=== PATIENT | male | born 1955 | race Caucasian/White ===

== ENCOUNTER 2016-07-22 00:56 | Emergency (ER) | payer OTHER, BC ==
[~2016-07-22] VITALS: Ht 187.9 cm; Wt 135.6 kg
[~2016-07-22 00:56] MED LIST: ACETAMINOPHEN-H1 TA2 PO; ASPIR-LOW81 MG PO; AUGMENTIN 875 M1 TAB PO; CITALOPRAM10 MG PO; CLARITIN10 MG PO; COREG12.5 MG PO; CYCLOBENZAPRINE10 MG PO; CYMBALTA30 MG PO; EFFIENT10 MG; GLIMEPIRIDE2 MG PO; GLUCOSAMINE & C1 CA2 PO; GLUCOSAMINE500 M1 PO; HYDROCOD-HOMAT1 EACH PO; HYDROCODONE BIT1 T11 PO; LANTUS100 U/ML SC; LASIX20 MG PO; LEVAQUIN500 M2 PO; LORATADINE10 MG PO; Levaquin PO; MELOXICAM15 MG PO; METFORMIN1000 MG PO; METFORMIN500 MG PO; MOTRIN800 MG PO; MUCINEX600 MG PO; NITRO-DUR0.4 MG/HR; OMEPRAZOLE40 MG PO; PERCOCET 325 MG1 TA7 PO; PLAVIX75 MG PO; PREDNISONE20 MG PO; ZESTRIL10 MG PO; ZOCOR40 MG PO
[2016-07-22 00:58] VITALS: BP 156/76
[2016-07-22] MEDS ORDERED: NEURONTIN300 MG PO (01:06)
[2016-07-22] MEDS ORDERED: CELECOXIB200 M1 PO (01:06)
[2016-07-22] MEDS ORDERED: BACLOFEN20 M1 PO (01:06)
[2016-07-22] MEDS ORDERED: NITROSTAT0.4 MG SL (01:07)
[2016-07-22] MEDS ORDERED: ULTRAM50 MG PO (03:33)
== END 2016-07-22 03:50 | disposition home or self-care (01) ==
LOC: ED 00:56
DX: S83.91XA Sprain of unspecified site of right knee, initial encounter (principal); M54.5 Low back pain; F41.9 Anxiety disorder, unspecified; I25.10 Atherosclerotic heart disease of native coronary artery without angina pectoris; F32.9 Major depressive disorder, single episode, unspecified; E78.5 Hyperlipidemia, unspecified; I10 Essential (primary) hypertension; M19.90 Unspecified osteoarthritis, unspecified site; E11.9 Type 2 diabetes mellitus without complications; Z79.82 Long term (current) use of aspirin; Z79.899 Other long term (current) drug therapy; W18.39XA Other fall on same level, initial encounter; Y93.9 Activity, unspecified; Y92.89 Other specified places as the place of occurrence of the external cause; Y99.9 Unspecified external cause status

== ENCOUNTER → 2016-08-01 | Outpatient (CLI) | payer BC ==
[~2016-08-01] MED LIST changes: +BACLOFEN20 M1 PO; +CELECOXIB200 M1 PO; +NEURONTIN300 MG PO; +NITROSTAT0.4 MG SL; +ULTRAM50 MG PO
== END | disposition home or self-care (01) ==
LOC: CT 14:46
DX: J32.9 Chronic sinusitis, unspecified (principal)

== ENCOUNTER 2016-12-03 11:36 | Inpatient (IN) | payer BC ==
[~2016-12-03] VITALS: Ht 187.9 cm; Wt 132.2 kg
--- NOTE | ~2016-12-03 | EKG ---
[place], [place] ELECTROCARDIOGRAM REPORT NAME: ROCKY ESPINOZA UNIT #: [id number] ROOM: 518 DOCTOR: RODOLFO JUSTIN MD BIRTHDATE: [birth year] DOS: 12/03/2016 TIME: 1207 hours. Normal sinus rhythm with unifocal PVCs. Rate is 72 beats per minute. Incomplete right bundle branch block. Abnormal ECG. No previous tracing is available for comparison. RODOLFO JUSTIN MD CM:EKGRPT:ELECTROCARDIOGRAM REPORT 2250 RODOLFO JUSTIN MD
[2016-12-03 11:40] VITALS: BP 113/59
[2016-12-03 11:48] VITALS: BP 98/50
[2016-12-03 12:00] VITALS: BP 106/56
[2016-12-03 12:19] LABS: BASO % 0.5 % (0.0-1.0); EOS # 0.1 10*3/uL (0.0-0.4); EOS % 2.5 % (1.0-4.0); HEMOGLOBIN 12.9 g/dl (14.0-18.0); LYMPH # 0.6 10*3/uL (1.3-4.4); LYMPH % 16.6 % (27.0-41.0); MEAN CELL VOLUME 91.4 fl (80.0-94.0); MEAN CORPUSCULAR HGB 31.9 pg (27.0-31.0); MEAN CORPUSCULAR HGB CONC 34.9 g/dl (33.0-37.0); MEAN PLATELET VOLUME 11.1 fl (9.6-12.3); MONO # 0.2 10*3/uL (0.1-1.0); MONO % 4.6 % (3.0-9.0); NEUT # 2.8 10*3/uL (2.3-7.9); PLATELET COUNT AUTOMATED 71 10*3/uL (130-400); RED BLOOD COUNT 4.05 10*6/uL (4.50-5.90); RED CELL DISTRI WIDTH 15.3 % (0-14.5); WHITE BLOOD COUNT 3.7 10*3/uL (4.8-10.8)
[2016-12-03 12:28] LABS: INTERNATIONAL NORM RATIO 1.1 (2.0-3.5); PROTHROMBIN TIME 11.9 SECONDS (9.0-12.4)
[2016-12-03 12:39] LABS: ALBUMIN 3.2 gm/dl (3.1-4.5); ALKALINE PHOSPHATASE 68 U/L (45-117); BUN 17 mg/dl (7-24); CARBON DIOXIDE 24 mmol/L (21-32); CHLORIDE 103 mmol/L (98-107); CKMB 2.5 ng/ml (0.5-3.6); CPK 138 U/L (39-308); EST GLOM FILT AFRICAN AMERICAN > 60 ml/min; GLUCOSE 85 mg/dL (65-99); MAGNESIUM 1.9 mg/dL (1.5-2.1); POTASSIUM 3.1 mmol/L (3.5-5.1); SGOT/AST 100 IU/L (3-35); SGPT/ALT 75 U/L (12-78); SODIUM 133 mmol/L (136-145); TOTAL PROTEIN 6.5 gm/dL (6.4-8.2)
[2016-12-03 12:46] LABS: TROPONIN I < 0.015 ng/ml (<0.045)
[2016-12-03 14:29] LABS: BILIRUBIN 1+ (NEGATIVE); BLOOD NEGATIVE (NEGATIVE); CLARITY SL CLOUDY (CLEAR); COLOR YELLOW (YELLOW); GLUCOSE NEGATIVE (NEGATIVE); KETONE TRACE (NEGATIVE); LEUKO ESTERASE NEGATIVE (NEGATIVE); NITRITE NEGATIVE (NEGATIVE); PROTEIN 1+ (NEGATIVE); SPECIFIC GRAVITY 1.015 (1.005-1.030)
[2016-12-03 14:35] VITALS: BP 117/55
[2016-12-03 14:37] LABS: BACTERIA TRACE; RBC 0-2 rbc/hpf (0-2); WBC 0-2 wbc/hpf (0-5)
[2016-12-03 14:38] LABS: URINE REFLEX COMMENT NO (NO)
[2016-12-03 16:00] VITALS: BP 103/57
[2016-12-03 20:00] VITALS: BP 99/44
[2016-12-04] VITALS: BP 81/42
[2016-12-04 04:05] VITALS: BP 124/64
[2016-12-04 06:09] LABS: BASO % 0.7 % (0.0-1.0); EOS # 0.2 10*3/uL (0.0-0.4); EOS % 4.9 % (1.0-4.0); HEMATOCRIT 33.4 % (42.0-52.0); HEMOGLOBIN 11.6 g/dl (14.0-18.0); LYMPH # 0.8 10*3/uL (1.3-4.4); MEAN CORPUSCULAR HGB 31.6 pg (27.0-31.0); MEAN CORPUSCULAR HGB CONC 34.7 g/dl (33.0-37.0); MONO # 0.2 10*3/uL (0.1-1.0); MONO % 7.6 % (3.0-9.0); NEUT # 1.8 10*3/uL (2.3-7.9); NEUT % 60.1 % (47.0-73.0); PLATELET COUNT AUTOMATED 75 10*3/uL (130-400); RED BLOOD COUNT 3.67 10*6/uL (4.50-5.90); RED CELL DISTRI WIDTH 15.5 % (0-14.5)
[2016-12-04 06:36] LABS: ALBUMIN 2.4 gm/dl (3.1-4.5); ALKALINE PHOSPHATASE 62 U/L (45-117); BILIRUBIN, TOTAL 0.6 mg/dl (0.2-1.0); BUN 12 mg/dl (7-24); CARBON DIOXIDE 22 mmol/L (21-32); CHLORIDE 107 mmol/L (98-107); EST GLOM FILT AFRICAN AMERICAN > 60 ml/min; FREE T4 1.32 ng/dl (0.76-1.46); GLUCOSE 104 mg/dL (65-99); MAGNESIUM 1.9 mg/dL (1.5-2.1); PHOSPHOROUS 2.5 mg/dL (2.5-4.9); POTASSIUM 3.2 mmol/L (3.5-5.1); SGOT/AST 83 IU/L (3-35); SGPT/ALT 66 U/L (12-78); SODIUM 137 mmol/L (136-145); TOTAL PROTEIN 5.6 gm/dL (6.4-8.2)
[2016-12-04 06:41] LABS: INTERNATIONAL NORM RATIO 1.1 (2.0-3.5); PROTHROMBIN TIME 12.1 SECONDS (9.0-12.4)
[2016-12-04 06:42] LABS: THYROID STIM HORMONE (HS) 0.898 uIU/ml (0.358-4.75)
[2016-12-04 07:53] LABS: FOLIC ACID 14.81 ng/mL (>5.38); VITAMIN D, 25-HYDROXY 23.2 ng/mL (30-100)
[2016-12-04 08:00] VITALS: BP 109/60
[2016-12-04 08:16] LABS: HEMOGLOBIN A1c 7.9 % (4.8-5.6)
[2016-12-04 12:00] VITALS: BP 145/65
[2016-12-04] MEDS ORDERED: ZESTRIL5 MG PO (14:24)
[2016-12-04] MEDS ORDERED: D-1000 185 MG-11 TAB PO (14:24)
[2016-12-04] MEDS ORDERED: HUMALOG100 U/ML SC (14:24)
[2016-12-04 16:00] VITALS: BP 123/68
== END 2016-12-04 16:18 | disposition home or self-care (01) | DRG 871 ==
LOC: ED 11:36 → 5E 13:43 → EDHOLD 13:43 → 5E 13:49
PROVIDERS: Emergency Medicine; Internal Medicine
DX: A41.9 Sepsis, unspecified organism (principal); J18.9 Pneumonia, unspecified organism; I95.9 Hypotension, unspecified; D69.6 Thrombocytopenia, unspecified; E87.1 Hypo-osmolality and hyponatremia; E86.0 Dehydration; I25.810 Atherosclerosis of coronary artery bypass graft(s) without angina pectoris; D72.819 Decreased white blood cell count, unspecified; D72.810 Lymphocytopenia; R19.7 Diarrhea, unspecified; D64.9 Anemia, unspecified; R74.0 Nonspecific elevation of levels of transaminase and lactic acid dehydrogenase [LDH]; I10 Essential (primary) hypertension; F41.9 Anxiety disorder, unspecified; F32.9 Major depressive disorder, single episode, unspecified; K29.00 Acute gastritis without bleeding; E78.5 Hyperlipidemia, unspecified; M19.90 Unspecified osteoarthritis, unspecified site; F17.210 Nicotine dependence, cigarettes, uncomplicated; G89.29 Other chronic pain; M54.5 Low back pain; E87.6 Hypokalemia; J44.9 Chronic obstructive pulmonary disease, unspecified; J20.9 Acute bronchitis, unspecified; G47.33 Obstructive sleep apnea (adult) (pediatric); E11.9 Type 2 diabetes mellitus without complications; Z79.899 Other long term (current) drug therapy; Z79.4 Long term (current) use of insulin; Z95.5 Presence of coronary angioplasty implant and graft; Z95.1 Presence of aortocoronary bypass graft; Z82.49 Family history of ischemic heart disease and other diseases of the circulatory system; Z80.6 Family history of leukemia; Z79.82 Long term (current) use of aspirin

== ENCOUNTER → 2017-01-10 | Outpatient (CLI) | payer BC ==
[~2017-01-10] MED LIST changes: +D-1000 185 MG-11 TAB PO; +HUMALOG100 U/ML SC; +ZESTRIL5 MG PO
[2017-01-10 08:38] LABS: BASO # 0.1 10*3/uL (0.0-0.1); BASO % 1.2 % (0.0-1.0); EOS # 0.3 10*3/uL (0.0-0.4); EOS % 4.1 % (1.0-4.0); HEMATOCRIT 43.2 % (42.0-52.0); HEMOGLOBIN 14.5 g/dl (14.0-18.0); LYMPH # 1.8 10*3/uL (1.3-4.4); LYMPH % 29.3 % (27.0-41.0); MEAN CELL VOLUME 93.9 fl (80.0-94.0); MEAN CORPUSCULAR HGB 31.5 pg (27.0-31.0); MEAN CORPUSCULAR HGB CONC 33.6 g/dl (33.0-37.0); MEAN PLATELET VOLUME 11.2 fl (9.6-12.3); MONO # 0.5 10*3/uL (0.1-1.0); MONO % 7.4 % (3.0-9.0); NEUT # 3.4 10*3/uL (2.3-7.9); NEUT % 55.9 % (47.0-73.0); PLATELET COUNT AUTOMATED 158 10*3/uL (130-400); RED CELL DISTRI WIDTH 15.5 % (0-14.5); WHITE BLOOD COUNT 6.1 10*3/uL (4.8-10.8)
[2017-01-10 08:43] LABS: BILIRUBIN NEGATIVE (NEGATIVE); BLOOD NEGATIVE (NEGATIVE); CLARITY CLEAR (CLEAR); COLOR YELLOW (YELLOW); GLUCOSE NEGATIVE (NEGATIVE); KETONE NEGATIVE (NEGATIVE); LEUKO ESTERASE NEGATIVE (NEGATIVE); NITRITE NEGATIVE (NEGATIVE); PH 5.5 (5.0-9.0); SPECIFIC GRAVITY 1.025 (1.005-1.030); UROBILINOGEN 0.2 E.U./dl (0.2-1.0)
[2017-01-10 08:58] LABS: ALBUMIN 3.6 gm/dl (3.1-4.5); ALKALINE PHOSPHATASE 69 U/L (45-117); BILIRUBIN, DIRECT 0.1 mg/dL (0.0-0.2); BUN 15 mg/dl (7-24); CHLORIDE 109 mmol/L (98-107); CREATININE 0.77 mg/dL (0.70-1.30); MAGNESIUM 2.3 mg/dL (1.5-2.1); PHOSPHOROUS 4.7 mg/dL (2.5-4.9); POTASSIUM 3.8 mmol/L (3.5-5.1); SGOT/AST 16 IU/L (3-35); SGPT/ALT 18 U/L (12-78); SODIUM 140 mmol/L (136-145); TOTAL PROTEIN 6.8 gm/dL (6.4-8.2)
[2017-01-10 09:08] LABS: ACT PARTIAL THROMBO TIME 26.6 SECONDS (20.8-31.5)
[2017-01-10 09:39] LABS: BACTERIA TRACE
[2017-01-10 09:40] LABS: MUCOUS 1+
[2017-01-10 10:06] LABS: VITAMIN D, 25-HYDROXY 23.5 ng/mL (30-100)
== END | disposition home or self-care (01) ==
LOC: LAB 07:51
PROVIDERS: Internal Medicine
DX: Z01.818 Encounter for other preprocedural examination (principal); E11.65 Type 2 diabetes mellitus with hyperglycemia; R79.1 Abnormal coagulation profile; E55.9 Vitamin D deficiency, unspecified

== ENCOUNTER 2019-05-03 00:48 | Inpatient (IN) | payer OTHER ==
[~2019-05-03] VITALS: Ht 182.8 cm; Wt 133.5 kg
[2019-05-03] VITALS (7 sets, daily range): BP systolic 110–154; BP diastolic 67–82
[2019-05-03 01:52] LABS: HEMOGLOBIN 14.4 g/dl (14.0-18.0); MEAN CORPUSCULAR HGB 33.7 pg (27.0-31.0); MEAN CORPUSCULAR HGB CONC 35.1 g/dl (33.0-37.0); MEAN PLATELET VOLUME 11.2 fl (9.6-12.3); NUCLEATED RED BLOOD CELL 0.4 % (0.0-0.0); PLATELET COUNT AUTOMATED 149 10*3/uL (130-400); RED BLOOD COUNT 4.27 10*6/uL (4.50-5.90); RED CELL DISTRI WIDTH 16.6 % (0-14.5); WHITE BLOOD COUNT 9.4 10*3/uL (4.8-10.8)
[2019-05-03 02:09] LABS: ALBUMIN 3.7 gm/dl (3.1-4.5); ALKALINE PHOSPHATASE 81 U/L (45-117); BUN 11 mg/dl (7-24); CHLORIDE 108 mmol/L (98-107); CREATININE 0.92 mg/dL (0.70-1.30); LIPASE 725 U/L (73-393); POTASSIUM 3.9 mmol/L (3.5-5.1); SGOT/AST 8 IU/L (3-35); SGPT/ALT 19 U/L (12-78); SODIUM 141 mmol/L (136-145); TOTAL PROTEIN 6.8 gm/dL (6.4-8.2)
[2019-05-03 02:12] LABS: PLATELET SUFFICIENCY LOW (NORMAL); TOTAL CELLS COUNTED 100 #CELLS
[2019-05-03 04:10] LABS: BILIRUBIN NEGATIVE (NEGATIVE); BLOOD NEGATIVE (NEGATIVE); CLARITY CLEAR (CLEAR); COLOR YELLOW (YELLOW); GLUCOSE 1+ (NEGATIVE); KETONE NEGATIVE (NEGATIVE); LEUKO ESTERASE NEGATIVE (NEGATIVE); NITRITE NEGATIVE (NEGATIVE); PH 5.5 (5.0-9.0); SPECIFIC GRAVITY >= 1.030 (1.005-1.030); UROBILINOGEN 0.2 E.U./dl (0.2-1.0)
[2019-05-03 04:32] LABS: RBC 0-2 rbc/hpf (0-2); WBC 0-2 wbc/hpf (0-5)
--- NOTE | 2019-05-03 07:05 | NUR ---
REPORT FROM EAMON VALDEZ AT THIS TIME
--- NOTE | 2019-05-03 07:40 | NUR ---
KASH VALDEZ FROM INPATIENT WILL ASSUME PATIENT CARE AT THIS TIME
[2019-05-03] MEDS ORDERED: MELOXICAM15 MG PO (08:21)
--- NOTE | 2019-05-03 13:45 | NUR ---
A 64, admitted to 5E, under the services of ERNESTO Alba DO with a diagnosis of LEFT GROIN PAIN. Chief complaint is PAIN. Patient arrived via bed from ER. Monitor applied. Initial assessment completed. Vital signs taken and recorded. ERNESTO ALBA DO notified of admission to the unit. Orders received. See assessment for past medical history, medications and allergies. Patient and/or family oriented to unit. [address] [facility] visitation policy reviewed. Clothing/patient valuable form completed. MICHEAL NAQVI
--- NOTE | 2019-05-03 14:00 | NUR ---
CHONG ORDERED TO STOP IV FLUIDS. PT UNABLE TO BRING CPAP FROM HOME. CHONG NOTIFIED.
--- NOTE | 2019-05-03 14:27 | NUR ---
PT MEDICATED WITH MORPHINE PER ORDER FOR 9/10 LEFT GROIN PAIN. WILL MONITOR EFFECTIVENESS.
--- NOTE | 2019-05-03 15:55 | NUR ---
CHONG NOTIFIED OF PT REFUSAL FOR CPAP HERE. NO OTHER ORDERS.
--- NOTE | 2019-05-03 16:30 | NUR ---
PT STATED THE MORPHINE HELPED HIS PAIN A LITTLE BIT. CALL LIGHT IN REACH
--- NOTE | 2019-05-03 18:20 | NUR ---
PT IN CHAIR WATCHING TV ON HIS PHONE. VOICES NO COMPLAINTS, CALL LIGHT IN REACH
--- NOTE | 2019-05-03 20:05 | NUR ---
PT AWAKE SITTING UP IN CHAIR. PT STATES HE IS IN PAIN, BUT DOES NOT WANT TO TAKE ANY PAIN MEDICATION YET. STATES IT IS NOT TO THE POINT WHERE HE NEEDS PAIN MEDICATION. WILL MONITOR. CALL LIGHT LEFT IN REACH.
--- NOTE | 2019-05-03 22:46 | NUR ---
PO NORCO ADMINISTERED PER PRN ORDER FOR C/O PAIN IN L GROIN/THIGH RATED 5/10. WILL MONITOR. CALL LIGHT IN REACH.
[2019-05-04] VITALS: BP 134/62
--- NOTE | 2019-05-04 00:38 | NUR ---
EARLIER MEDICATION EFFECTIVE PER PT.
[2019-05-04 07:48] LABS: BASO # 0.1 10*3/uL (0.0-0.1); BASO % 0.5 % (0.0-1.0); EOS # 0.1 10*3/uL (0.0-0.4); EOS % 1.3 % (1.0-4.0); HEMOGLOBIN 14.6 g/dl (14.0-18.0); LYMPH # 0.8 10*3/uL (1.3-4.4); MEAN CELL VOLUME 96.6 fl (80.0-94.0); MEAN CORPUSCULAR HGB 33.6 pg (27.0-31.0); MEAN CORPUSCULAR HGB CONC 34.8 g/dl (33.0-37.0); MEAN PLATELET VOLUME 11.3 fl (9.6-12.3); MONO # 0.3 10*3/uL (0.1-1.0); MONO % 2.5 % (3.0-9.0); NEUT # 8.6 10*3/uL (2.3-7.9); NUCLEATED RED BLOOD CELL 0.2 % (0.0-0.0); PLATELET COUNT AUTOMATED 158 10*3/uL (130-400); RED BLOOD COUNT 4.35 10*6/uL (4.50-5.90); RED CELL DISTRI WIDTH 16.3 % (0-14.5); WHITE BLOOD COUNT 10.1 10*3/uL (4.8-10.8)
[2019-05-04 08:00] VITALS: BP 127/59
[2019-05-04 08:07] LABS: ALBUMIN 3.6 gm/dl (3.1-4.5); BUN 14 mg/dl (7-24); CHLORIDE 107 mmol/L (98-107); CHOLESTEROL 129 mg/dL (<200); CREATININE 0.67 mg/dL (0.70-1.30); LIPASE 140 U/L (73-393); PHOSPHOROUS 3.4 mg/dL (2.5-4.9); SGOT/AST 7 IU/L (3-35); SGPT/ALT 19 U/L (12-78); SODIUM 137 mmol/L (136-145)
[2019-05-04 08:13] LABS: ALKALINE PHOSPHATASE 63 U/L (45-117); FREE T4 1.02 ng/dl (0.76-1.46); HDL CHOLESTEROL 28 mg/dl (40-60); LDL CHOLESTEROL 74 mg/dL (9-159); THYROID STIM HORMONE (HS) 0.609 uIU/ml (0.358-4.75); TOTAL PROTEIN 6.6 gm/dL (6.4-8.2); TRIGLYCERIDES 133 mg/dl (<150); VLDL CHOLESTEROL 27 mg/dL (6-40)
--- NOTE | 2019-05-04 08:30 | NUR ---
PT SITTING UP IN RECLINER CHAIR. RESP-EASY AND REGULAR. C/O LEFT GROIN/ UNDER LEFT ABDOMINAL AREA, RATES PAIN 2 ON PAIN SCALE 0-10. PT REFUSED PAIN MEDICATION AT THIS TIME. CHONG PEREZ IN TO SEE PT. CALL LIGHT IN REACH. SEE SHIFT ASSESSMENT.
[2019-05-04 08:53] LABS: VITAMIN D, 25-HYDROXY 16.4 ng/mL (30-100)
[2019-05-04] MEDS ORDERED: CYCLOBENZAPRINE10 MG PO (10:58)
[2019-05-04] MEDS ORDERED: PREDNISONE10 MG PO (10:58)
--- NOTE | 2019-05-04 11:55 | NUR ---
Discharge instructions reviewed with patient/family. Patient receptive and verbalizes understanding. Follow-up care arranged. Written instructions given to patient/family. HEPLOCK REMOVED 2X2 APPLIED. AMBULATORY OFF THE FLOOR PT DROVE HISSELF HERE. MALCOLM RAO R
--- NOTE | 2019-05-04 12:08 | NUR ---
Rubber Cutter in to talk to patient. Patient states lives at HOME with . There are FEW steps in the home. Physician: TAMARA [facility] [place] [facility] Patient's level of ADLs: INDEPENDENT Patient has working utilities: YES DME: Amy [employer] Follow-up physician's appointment after d/c: WILL BE MADE BY HOSPITALIST NURSE DIRECTOR ON DISCHARGE Does patient want to access PORTAL?: NO Discharge plan PT LIVES AT HOME WITH HIS AND IS INDEPENDENT IN HIS CARE. STATES HE HAS A CPAP HE USES AND WILL HAVE NO OTHER NEEDS ON DISCHARGE. PLAN IF TO RETURN HOME WHEN MEDICALLY STABLE. WILL CONTINUE TO FOLLOW. STATES HIS WILL TAKE HIM HOME,. IBETH TREVIZO
== END 2019-05-04 11:55 | disposition home or self-care (01) | DRG 439 ==
LOC: ED 00:48 → 5E 05:23 → EDHOLD 05:23 → 5E 13:42
PROVIDERS: Emergency Medicine; Internal Medicine; ADMIT Family Medicine
DX: K85.90 Acute pancreatitis without necrosis or infection, unspecified (principal); E44.1 Mild protein-calorie malnutrition; K80.80 Other cholelithiasis without obstruction; S39.013A Strain of muscle, fascia and tendon of pelvis, initial encounter; I10 Essential (primary) hypertension; I25.10 Atherosclerotic heart disease of native coronary artery without angina pectoris; G47.33 Obstructive sleep apnea (adult) (pediatric); M54.42 Lumbago with sciatica, left side; E11.9 Type 2 diabetes mellitus without complications; J44.9 Chronic obstructive pulmonary disease, unspecified; F32.9 Major depressive disorder, single episode, unspecified; M19.90 Unspecified osteoarthritis, unspecified site; E78.5 Hyperlipidemia, unspecified; F17.210 Nicotine dependence, cigarettes, uncomplicated; F41.9 Anxiety disorder, unspecified; X58.XXXA Exposure to other specified factors, initial encounter; Y93.89 Activity, other specified; Y92.89 Other specified places as the place of occurrence of the external cause; Y99.8 Other external cause status; Z79.4 Long term (current) use of insulin; Z87.01 Personal history of pneumonia (recurrent); Z95.1 Presence of aortocoronary bypass graft; Z82.49 Family history of ischemic heart disease and other diseases of the circulatory system; Z80.6 Family history of leukemia; Z79.82 Long term (current) use of aspirin; Z79.899 Other long term (current) drug therapy; Z79.02 Long term (current) use of antithrombotics/antiplatelets; Z71.6 Tobacco abuse counseling; Z68.39 Body mass index [BMI] 39.0-39.9, adult

== ENCOUNTER → 2020-06-16 | Outpatient (CLI) | payer MEDICARE ==
[~2020-06-16] MED LIST changes: +PREDNISONE10 MG PO
== END | disposition home or self-care (01) ==
LOC: RAD 10:24
PROVIDERS: ATTEND Internal Medicine
DX: M85.88 Other specified disorders of bone density and structure, other site (principal); M47.816 Spondylosis without myelopathy or radiculopathy, lumbar region

== ENCOUNTER → 2021-03-05 | Outpatient (CLI) | payer MEDICARE ==
[2021-03-05 08:45] LABS: HEMATOCRIT 38.1 % (42.0-52.0); MEAN CELL VOLUME 101.6 fl (80.0-94.0); MEAN CORPUSCULAR HGB 34.4 pg (27.0-31.0); MEAN CORPUSCULAR HGB CONC 33.9 g/dl (33.0-37.0); MEAN PLATELET VOLUME 11.4 fl (9.6-12.3); NUCLEATED RED BLOOD CELL 0.3 % (0.0-0.0); PLATELET COUNT AUTOMATED 123 10*3/uL (130-400); RED BLOOD COUNT 3.75 10*6/uL (4.50-5.90); RED CELL DISTRI WIDTH 20.1 % (0-14.5); WHITE BLOOD COUNT 6.3 10*3/uL (4.8-10.8)
[2021-03-05 09:18] LABS: ALBUMIN 3.4 gm/dl (3.1-4.5); CHLORIDE 109 mmol/L (98-107); POTASSIUM 4.2 mmol/L (3.5-5.1); SGOT/AST 17 IU/L (3-35); SODIUM 138 mmol/L (136-145); THYROXINE (T4) TOTAL 7.9 ug/dl (4.5-12.1); TOTAL PROTEIN 7.2 gm/dL (6.4-8.2)
[2021-03-05 09:33] LABS: ALKALINE PHOSPHATASE 65 U/L (45-117); BUN 15 mg/dl (7-24); CREATININE 0.81 mg/dL (0.70-1.30); SGPT/ALT 16 U/L (12-78); T3 UPTAKE 31 % (31-39)
[2021-03-05 09:34] LABS: BASOPHILS 1 % (0-1); OVALOCYTES FEW; PLATELET SUFFICIENCY LOW (NORMAL); TOTAL CELLS COUNTED 100 #CELLS
[2021-03-05 09:35] LABS: POLYCHROMASIA SLIGHT
[2021-03-06 08:08] LABS: FOLLICLE STIMULATING HORMONE 11.9 mIU/mL (1.5-12.4); LUTEINIZING HORMONE 8.9 mIU/mL (1.7-8.6); PROLACTIN 12.4 ng/mL (4.0-15.2)
[2021-03-06 13:06] LABS: PROGESTERONE <0.1 ng/mL (0.0-0.5)
== END | disposition home or self-care (01) ==
LOC: LAB 07:58
PROVIDERS: ATTEND Urology
DX: Z12.5 Encounter for screening for malignant neoplasm of prostate (principal); R53.82 Chronic fatigue, unspecified; D40.0 Neoplasm of uncertain behavior of prostate

== ENCOUNTER → 2021-03-09 | Outpatient (CLI) | payer MEDICARE | END | disposition home or self-care (01) | LOC: US 12:41 | PROVIDERS: ATTEND Urology | DX: N28.1 Cyst of kidney, acquired (principal) ==

== ENCOUNTER → 2021-04-10 | Outpatient (CLI) | payer MEDICARE | END | disposition home or self-care (01) | LOC: CT 10:51 | PROVIDERS: ATTEND Urology | DX: N28.1 Cyst of kidney, acquired (principal); K80.20 Calculus of gallbladder without cholecystitis without obstruction; R16.0 Hepatomegaly, not elsewhere classified; R16.1 Splenomegaly, not elsewhere classified; R31.9 Hematuria, unspecified ==

== ENCOUNTER → 2021-05-09 | Outpatient (CLI) | payer MEDICARE ==
[2021-05-09 10:47] LABS: HEMATOCRIT 42.7 % (42.0-52.0); MEAN CELL VOLUME 103.6 fl (80.0-94.0); MEAN CORPUSCULAR HGB CONC 33.7 g/dl (33.0-37.0); MEAN PLATELET VOLUME 10.8 fl (9.6-12.3); NUCLEATED RED BLOOD CELL 0.5 % (0.0-0.0); PLATELET COUNT AUTOMATED 145 10*3/uL (130-400); RED BLOOD COUNT 4.12 10*6/uL (4.50-5.90); RED CELL DISTRI WIDTH 20.3 % (0-14.5); WHITE BLOOD COUNT 7.3 10*3/uL (4.8-10.8)
[2021-05-09 11:08] LABS: ATYPICAL LYMPHS 1 % (0-0); BASOPHILS 2 % (0-1); BURR CELLS FEW; OVALOCYTES FEW; POLYCHROMASIA SLIGHT; TOTAL CELLS COUNTED 100 #CELLS
[2021-05-09 11:09] LABS: PLATELET SUFFICIENCY NORMAL (NORMAL)
[2021-05-09 11:13] LABS: ALBUMIN 3.7 gm/dl (3.1-4.5); ALKALINE PHOSPHATASE 56 U/L (45-117); BUN 14 mg/dl (7-24); CHLORIDE 106 mmol/L (98-107); CREATININE 0.82 mg/dL (0.70-1.30); LDH 152 U/L (87-241); POTASSIUM 4.6 mmol/L (3.5-5.1); SGOT/AST 17 IU/L (3-35); SGPT/ALT 18 U/L (12-78); SODIUM 137 mmol/L (136-145); TOTAL PROTEIN 7.3 gm/dL (6.4-8.2)
[2021-05-09 11:31] LABS: BETA-HCG, TUMOR MARKER < 1.0 mIU/mL (<1)
== END | disposition home or self-care (01) ==
LOC: US 10:00 → LAB 10:06
PROVIDERS: ATTEND Urology
DX: Z12.5 Encounter for screening for malignant neoplasm of prostate (principal); D40.0 Neoplasm of uncertain behavior of prostate; N50.3 Cyst of epididymis; N44.00 Torsion of testis, unspecified

== ENCOUNTER → 2021-07-17 | Outpatient (CLI) | payer MEDICARE ==
[2021-07-17 10:16] LABS: HEMATOCRIT 44.2 % (42.0-52.0); MANUAL DIFF REFLEX YES; MEAN CELL VOLUME 98.4 fl (80.0-94.0); MEAN CORPUSCULAR HGB 34.1 pg (27.0-31.0); MEAN CORPUSCULAR HGB CONC 34.6 g/dl (33.0-37.0); MEAN PLATELET VOLUME 11.3 fl (9.6-12.3); NUCLEATED RED BLOOD CELL 0.1 10*3/uL (0.0-0.0); NUCLEATED RED BLOOD CELL 0.7 % (0.0-0.0); PLATELET COUNT AUTOMATED 141 10*3/uL (130-400); RED BLOOD COUNT 4.49 10*6/uL (4.50-5.90); RED CELL DISTRI WIDTH 20.2 % (0-14.5); WHITE BLOOD COUNT 7.2 10*3/uL (4.8-10.8)
[2021-07-17 11:11] LABS: ATYPICAL LYMPHS 4 % (0-0); BASOPHILS 4 % (0-1); PLATELET SUFFICIENCY NORMAL (NORMAL); TOTAL CELLS COUNTED 100 #CELLS
[2021-07-17 11:18] LABS: BUN 19 mg/dl (7-24); CHLORIDE 105 mmol/L (98-107); POTASSIUM 4.4 mmol/L (3.5-5.1); SGOT/AST 21 IU/L (3-35); SGPT/ALT 21 U/L (12-78); SODIUM 138 mmol/L (136-145)
[2021-07-17 11:19] LABS: ALKALINE PHOSPHATASE 65 U/L (45-117); TOTAL PROTEIN 7.6 gm/dL (6.4-8.2)
== END | disposition home or self-care (01) ==
LOC: LAB 09:59
PROVIDERS: ATTEND Urology
DX: E11.9 Type 2 diabetes mellitus without complications (principal); I10 Essential (primary) hypertension; R53.83 Other fatigue

== ENCOUNTER → 2022-05-21 | Outpatient (CLI) | payer MEDICARE | END | disposition home or self-care (01) | LOC: LAB 09:24 | PROVIDERS: ATTEND Internal Medicine | DX: D64.9 Anemia, unspecified (principal) ==

== ENCOUNTER → 2023-02-26 | Outpatient (CLI) | payer MEDICARE | END | disposition home or self-care (01) | LOC: CT 14:00 | PROVIDERS: ATTEND Specialist | DX: J32.0 Chronic maxillary sinusitis (principal); J34.2 Deviated nasal septum; J34.1 Cyst and mucocele of nose and nasal sinus ==

== ENCOUNTER 2023-11-26 19:20 | Emergency (ER) | payer MEDICARE ==
[~2023-11-26] VITALS: Ht 187.9 cm; Wt 112.1 kg
[~2023-11-26 19:20] MED LIST changes: +ALLOPURINOL300 MG PO; +ATORVASTATIN CA20 M1 PO; +BRILINTA90 M1 PO; +Ipratropium Brom3 ML INH; +LASIX40 MG PO; +METOPROLOL SUCC25 M2 PO; +VIBRA-TAB100 MG PO; +[UNRECOGNIZED DRUG - OTHER] PO
[2023-11-26] MEDS ORDERED: SODIUM CHLORIDE 0.9% 1,000 ML IV ONE ×4 (19:25→22:45)
[2023-11-26 19:57] LABS: MEAN CELL VOLUME 102.2 fl (80.0-94.0); MEAN CORPUSCULAR HGB 32.6 pg (27.0-31.0); MEAN CORPUSCULAR HGB CONC 31.9 g/dl (33.0-37.0); MEAN PLATELET VOLUME 14.3 fl (9.6-12.3); NUCLEATED RED BLOOD CELL 4.5 % (0.0-0.0); PLATELET COUNT AUTOMATED 138 10*3/uL (130-400); RED BLOOD COUNT 1.81 10*6/uL (4.50-5.90); RED CELL DISTRI WIDTH 22.1 % (0-14.5)
[2023-11-26 19:59] LABS: HEMATOCRIT 18.5 % (42.0-52.0); WHITE BLOOD COUNT 44.6 10*3/uL (4.8-10.8)
[2023-11-26 20:00] LABS: MANUAL DIFF REFLEX YES
[2023-11-26 20:06] LABS: POTASSIUM 4.1 mmol/L (3.4-5.1); TOTAL PROTEIN 4.4 gm/dL (6.0-8.0)
[2023-11-26 20:13] LABS: TOTAL CELLS COUNTED 100 #CELLS
[2023-11-26 20:15] LABS: BLASTS 50 % (0-0)
[2023-11-26 20:17] LABS: POLYCHROMASIA SLIGHT
[2023-11-26 20:18] LABS: PLATELET SUFFICIENCY LOW (NORMAL)
[2023-11-26 20:19] LABS: OVALOCYTES FEW
[2023-11-26] MEDS ORDERED: Pantoprazole Sodium 40 MG VIAL IV ONE ×2 (21:35)
[2023-11-26] MEDS ORDERED: Pantoprazole Sodium 40 MG in SODIUM CHLORIDE 0.9% 50 ML IV SCH (22:45)
[2023-11-26] MEDS ORDERED: MAGNESIUM SULFATE 100 ML IV ONE (22:50)
[2023-11-26] MEDS ORDERED: Pantoprazole Sodium 40 MG IV ONE (23:17)
[2023-11-26] MEDS ORDERED: SODIUM CHLORIDE 0.9% 50 ML IV ONE (23:18)
[2023-11-27] VITALS (13 sets, daily range): BP systolic 62–94; BP diastolic 19–42
[2023-11-27] MEDS ORDERED: SODIUM CHLORIDE 0.9% 500 ML IV ONE ×2 (00:07→00:11)
[2023-11-27] MEDS ORDERED: SODIUM CHLORIDE 0.9% 1,000 ML IV ONE (11:20)
== END 2023-11-27 12:31 | disposition short-term general hospital (02) ==
LOC: ED 19:20
PROVIDERS: Internal Medicine
DX: K92.2 Gastrointestinal hemorrhage, unspecified (principal); N17.9 Acute kidney failure, unspecified; E83.42 Hypomagnesemia; D72.89 Other specified disorders of white blood cells; D53.9 Nutritional anemia, unspecified; E43 Unspecified severe protein-calorie malnutrition; I25.2 Old myocardial infarction; F17.210 Nicotine dependence, cigarettes, uncomplicated; Z79.899 Other long term (current) drug therapy; Z79.2 Long term (current) use of antibiotics; Z79.4 Long term (current) use of insulin; Z79.82 Long term (current) use of aspirin; Z95.5 Presence of coronary angioplasty implant and graft; Z90.89 Acquired absence of other organs; Z98.890 Other specified postprocedural states